=== PATIENT | female | born 2000 | race Caucasian/White ===

== ENCOUNTER → 2021-07-27 | Outpatient (CLI) | payer BC ==
[2021-07-28 09:13] LABS: FSH 9.5 mIU/mL (.); LUTEINIZING HORMONE(LH) 15.1 mIU/mL (.); PROLACTIN 18.3 ng/mL (4.8-23.3); TESTOSTERONE, SERUM 65 ng/dL (13-71)
[2021-07-28 12:13] LABS: INSULIN 33.7 uIU/mL (2.6-24.9)
== END ==
LOC: LAB 07:07
PROVIDERS: Nurse Practitioner Family
DX: N92.6 Irregular menstruation, unspecified (principal)
CPT/HCPCS: 36415; 82627; 82947; 83001; 83002; 83036; 84146; 84403; 84439; 84443; 84702